=== PATIENT | male | born 1995 | race Caucasian/White ===

== ENCOUNTER 2024-02-18 13:39 | Emergency (ER) | payer MEDICAID, OTHER ==
[~2024-02-18] VITALS: Ht 170.2 cm; Wt 73.4 kg
[2024-02-18 13:40] VITALS: O2SAT 97
[2024-02-18 13:45] VITALS: BP 100/62; PULSE 96; RESP 18; TEMP 98.2; O2SAT 95
[2024-02-18 14:37] LABS: CARBON DIOXIDE 30 mEq/L (21-32); CHLORIDE 103 mEq/L (98-107); SODIUM 138 mEq/L (136-145)
[2024-02-18 14:38] LABS: CALCIUM 9.4 mg/dL (8.7-10.4)
[2024-02-18 14:43] LABS: CREATININE 0.8 mg/dL (0.6-1.3); GLUCOSE 74 mg/dL (70-105); UREA NITROGEN BLOOD 6 mg/dL (9-23)
[2024-02-18] MEDS ORDERED: METF-414 MT (15:00)
[2024-02-18] MEDS ORDERED: DIVA-18 PO (15:00)
== END 2024-02-18 15:23 | disposition home or self-care (01) ==
LOC: ER 13:39
DX: F20.9 Schizophrenia, unspecified (principal); F12.10 Cannabis abuse, uncomplicated; F15.10 Other stimulant abuse, uncomplicated; E11.9 Type 2 diabetes mellitus without complications; Z76.0 Encounter for issue of repeat prescription
CPT/HCPCS: 36415; 80048; 99283